=== PATIENT | female | born 1940 | race Two or more races ===

== ENCOUNTER → 2025-02-28 | Outpatient (CLI) | payer MEDICARE, MEDICAID, SELFPAY ==
--- NOTE | 2025-02-28 09:39 | XR_ITS ---
Examination: PA lateral chest 2 views TECHNIQUE: Upright PA lateral chest 2 views Exam date and time: February 28, 2025 at 1011 hours INDICATIONS: Shortness of breath beginning 2 years ago. FINDINGS: Mild prominence left ventricle Chronic parenchymal disease versus mild pneumonia in the posterior basal segment right lower lobe Prominent osteopenia IMPRESSION: Scarring versus pneumonia in the posterior basal segment right lower lobe, clinical correlation advised
[2025-02-28 10:55] LABS: Collection Type, Urine Clean Catch
[2025-02-28 11:37] LABS: Troponin I 0.044 ng/mL (0.0-0.045)
[2025-02-28 11:38] LABS: B-Type Natriuretic Peptide 241 pg/mL (0-100)
[2025-02-28 11:44] LABS: Bilirubin,Urine Negative (Negative); Blood,Urine Negative (Negative); Clarity,Urine Clear (Clear/Hazy); Color,Urine Lt-Yellow (Lt Yel-Yel); Culture Indicated,Urine Not Indicated; Glucose, Urine Negative (Negative); Ketones,Urine Negative (Negative); Leukocyte Esterase,Urine Positive (Negative); Nitrite,Urine Negative (Negative); Protein,Urine Negative (Neg - Trace); RBC,Urine 1 /hpf (0-3); Specific Gravity,Urine 1.016 (1.001-1.035); Squamous Epithelial Cell,Urine < 1 /hpf (0-5); Urobilinogen,Urine Negative mg/dL (0.0-1.0); WBC,Urine 2 /hpf (0-5)
== END | disposition home or self-care (01) ==
LOC: CDIM 09:21 → COPL 10:18
PROVIDERS: PCP Internal Medicine; Referring Provider Internal Medicine; Visit Provider Radiology Diagnostic Radiology
DX: I50.9 Heart failure, unspecified (principal); H90.11 Conductive hearing loss, unilateral, right ear, with unrestricted hearing on the contralateral side; E78.00 Pure hypercholesterolemia, unspecified; E11.9 Type 2 diabetes mellitus without complications
CPT/HCPCS: 36415; 71046; 81001; 83880; 84484